=== PATIENT | female | born 1990 | race Caucasian/White ===

== ENCOUNTER 2021-07-02 13:23 | Outpatient (CLI) | payer MEDICAID, SELFPAY ==
--- NOTE | 2021-07-02 13:29 | XRR_ITS ---
PROCEDURE INFORMATION: Exam: XR Chest Exam date and time: 07/02/2021 1:29 PM Age: 30 years old Clinical indication: Cough TECHNIQUE: Imaging protocol: XR of the chest. Views: 2 views. COMPARISON: No relevant prior studies available. FINDINGS: Lungs: There is fullness of the right hilum that could reflect mass, aneurysm or lymphadenopathy. Patchy opacity at the right base concerning for pneumonia. Pleural spaces: No pleural effusion. No pneumothorax. Heart/Mediastinum: The cardiac silhouette is unremarkable. No gross evidence of pneumomediastinum. Bones/joints: No gross fracture. XR/XR chest 2V* [id number] IMPRESSION: 1. Patchy opacity at the right base concerning for pneumonia. 2. Fullness of the right hilum that could reflect mass, aneurysm or lymphadenopathy. 3. Recommend CT chest with contrast to further assess.
== END 2021-07-02 13:24 | disposition home or self-care (01) ==
PROVIDERS: PCP Family Medicine; Visit Provider Registered Nurse Neonatal Intensive Care
DX: R05.9 Cough, unspecified (principal)
CPT/HCPCS: 71046

== ENCOUNTER 2021-07-20 09:45 | Outpatient (CLI) | payer MEDICAID, SELFPAY ==
--- NOTE | 2021-07-20 09:54 | XR_ITS ---
WS: [id number] XR chest 2V* [id number] REASON FOR EXAM: ABNORMAL CHEST RADIOGRAPH FINDINGS: Compared to previous examination 07/02/2021, the opacities in the lower lung larios have resolved and the chest is considered to be within normal limits at this time. XR/XR chest 2V* [id number] IMPRESSION: Normal chest as above.
== END 2021-07-20 09:46 | disposition home or self-care (01) ==
LOC: RAD 09:50
PROVIDERS: PCP Family Medicine; Visit Provider Family Medicine
DX: R91.8 Other nonspecific abnormal finding of lung field (principal)
CPT/HCPCS: 71046